=== PATIENT | male | born 1955 | race Caucasian/White ===

== ENCOUNTER 2018-02-04 15:18 | Emergency (ER) | payer OTHER ==
[2018-02-04 16:02] VITALS: BP 150/94
--- NOTE | 2018-02-04 16:14 | UC ---
Respiratory Complaint HPI - HPI Summary HPI Summary: 62 y/o male presents to the urgent care c/o body aches, dry cough, sore throat, low grade fever for the past 2 days. Pt reports his was had similar symptoms for the past 12 days and was recently Dx w/ bronchitis. Pain w/ swallowing is 3/10, but his uvula is very red. His cough didn't allow him to sleep last night. He has PMHX of asthma. He has not been wheezing, but wanted to use it last night for his cough and it was . He request a refill. He has taking Ibuprofen PO to alleviate symptoms. Pt denies SOB, chest pain, wheezing, abdominal pain, N/V/D. - History of Current Complaint Chief Complaint: UCRespiratory Stated Complaint: SORE THROAT COUGH Time Seen by Provider: 02/04/18 16:10 Hx Obtained From: Patient Onset/Duration: Gradual Onset, Lasting Days - 2 days, Still Present, Worse Since - last night Timing: Constant Severity Initially: Mild Severity Currently: Mild Pain Intensity: 3 Pain Scale Used: 0-10 Numeric Character: Cough: Nonproductive Aggravating Factors: Recumbent Position Alleviating Factors: OTC Meds Associated Signs And Symptoms: Positive: Fever - low grade. Negative: Wheezing - Risk Factors Pulmonary Embolism Risk Factors: Negative Cardiac Risk Factors: Negative Pseudomonas Risk Factors: Negative Tuberculosis Risk Factors: Negative - Allergies/Home Medications Allergies/Adverse Reactions: Allergies Allergy/AdvReac Type Severity Reaction Status Date / Time No Known Allergies Allergy Verified 02/04/18 16:07 Home Medications: Home Medications Multivitamin [Multivitamins] 1 cap PO DAILY 02/04/18 [History Confirmed 02/04/18 ] Vit D3-Vit K/Berberine/Hops [Ostera Tablet] 1 tab PO DAILY 02/04/18 [History Confirmed 02/04/18] PMH/Surg Hx/FS Hx/Imm Hx Previously Healthy: Yes Cardiovascular History: Hypertension Respiratory History: Asthma - Surgical History Surgical History: Yes Surgery Procedure, Year, and Place: LEFT LEG SURGERY - Family History Known Family History: Positive: Cardiac Disease, Hypertension - Social History Occupation: Employed Full-time Lives: With Family Alcohol Use: Occasionally Substance Use Type: None Smoking Status (MU): Former Smoker Review of Systems Constitutional: Fever - low grade at home Skin: Negative Eyes: Negative ENT: Sore Throat, Other - red uvula Respiratory: Cough - dry Cardiovascular: Negative Gastrointestinal: Negative Genitourinary: Negative Motor: Negative Neurovascular: Negative Musculoskeletal: Negative Neurological: Negative Psychological: Negative Is Patient Immunocompromised?: No All Other Systems Reviewed And Are Negative: Yes Physical Exam - Summary Physical Exam Summary: VITAL SIGNS: Reviewed. GENERAL: Patient is a well developed and nourished male who is sitting comfortable in the examining table. Patient is not in any acute respiratory distress. HEAD AND FACE: No signs of trauma. No ecchymosis, hematomas or skull depressions. No sinus tenderness. EYES: PERRLA, EOMI x 2, No injected conjunctiva, no nystagmus. No photophobia. EARS: Hearing grossly intact. Ear canals and tympanic membranes are within normal limits. MOUTH: Positive pharynx with erythema, no exudates, mild palatal petechiae. no B /L tonsillar enlargement . Uvula swollen and enlarged w/ erythema some papules. NECK: Supple, trachea is midline, Positive anterior cervical lymphadenopathy, no JVD, no carotid bruit, no c-spine tenderness, neck with full ROM. No meningeal signs, no Kernig's or brudzinskis signs. CHEST: Symmetric, no tenderness at palpation LUNGS: Clear to auscultation bilaterally. No wheezing or crackles. CVS: Regular rate and rhythm, S1 and S2 present, no murmurs or gallops appreciated. ABDOMEN: Soft, non-tender. No signs of distention. No rebound no guarding, and no masses palpated. Bowel sounds are normal. EXTREMITIES: FROM in all major joints, no edema, no cyanosis or clubbing. NEURO: Alert and oriented x 3. No acute neurological deficits. Speech is normal and follows commands. SKIN: Dry and warm Triage Information Reviewed: Yes Vital Signs: Initial Vital Signs Temp 97.6 F 02/04/18 15:57 Pulse 97 02/04/18 15:57 Resp 16 02/04/18 15:57 BP 150/94 02/04/18 15:57 Pulse Ox 100 02/04/18 15:57 Diagnostic Evaluation - Laboratory O2 Sat by Pulse Oximetry: 100 Respiratory Course/Dx - Course Course Of Treatment: 62 y/o male presents to the urgent care c/o body aches, dry cough, sore throat, low grade fever for the past 2 days. Pt reports his was had similar symptoms for the past 12 days and was recently Dx w/ bronchitis. Pain w/ swallowing is 3/10, but his uvula is very red. His cough didn't allow him to sleep last night. He has PMHX of asthma. He has not been wheezing, but wanted to use it last night for his cough and it was . He request a refill. He has taking Ibuprofen PO to alleviate symptoms. Pt denies SOB, chest pain, wheezing, abdominal pain, N/V/D. Hx obtained. Pt w/ uvulitis and pharyngitis on examination. Pt Rx Augmentin PO and advised to continue w/ Ibuprofen PO for pain and swelling. Also given refill for albuterol inhaler and Rx Tessalon tabs PO to alleviate cough.PT Advised on hand washing to avoid spreading. Also advised to rest, eat well and avoid strenuous exercise. If symptoms do not improve or worsen advised to return to the urgent care or f/u with PCP for further evaluation and treatment. Pt's BP is elevated today advised to decrease salt in diet, monitor BP and f/u with PCP for further management. PT understood and agreed w/ plan of care. - Differential Dx/Diagnosis Differential Diagnosis/HQI/PQRI: Asthma, Bronchitis, Influenza, Sinusitis, Other - pharyngitis, uvulitis Provider Diagnoses: 1- Pharyngitis. 2-Uvulitis. 3-Cough. 4-Uncontrolled HTN Discharge - Sign-Out/Discharge Documenting (check all that apply): Discharge/Admit/Transfer - D/C home - Discharge Plan Condition: Stable Disposition: HOME Prescriptions: Albuterol HFA INHALER* [Ventolin HFA Inhaler*] 1 - 2 puff INH Q6H PRN #1 mdi PRN Reason: Cough Amoxicillin/Clavulanate TAB* [Augmentin TAB 875*] 875 mg PO BID #20 tab Benzonatate CAP* [Tessalon 100 MG CAP*] 100 mg PO TID #21 cap Patient Education Materials: Pharyngitis (ED), Uvulitis (ED), Low-Sodium Diet ( ED) Referrals: Marcelina Rodriguez MD [Primary Care Provider] - 3 Days Additional Instructions: 1- Please take the full course of the antibiotic to avoid resistance. 2-Please continue taking ibuprofen PO q6-8hrs prn as instructed after meals to alleviate pain and swelling. Increase fluid intake, eat well, rest and avoid strenuous exercise 3-If symptoms do not improve or worsen please return to the urgent care or f/u with your PCP for further evaluation and treatment. 4-Your BP is elevated today. please decrease salt in your diet, monitor BP and if it continues to be elevated please f/u with your PCP for further management - Billing Disposition and Condition Condition: STABLE Disposition: HOME
== END 2018-02-04 16:45 | disposition home or self-care (01) ==
LOC: UCEAST 15:18
DX: J02.9 Acute pharyngitis, unspecified (principal); K12.2 Cellulitis and abscess of mouth; R05 Cough; I10 Essential (primary) hypertension; J45.909 Unspecified asthma, uncomplicated; Z87.891 Personal history of nicotine dependence
CPT/HCPCS: 99212; G0463

== ENCOUNTER 2023-08-04 14:44 | Observation (INO) ==
[2023-08-04 15:13] LABS: ABS Basophils 0.1 10^3/uL (0.0-0.1); ABS Lymphocytes 3.3 10^3/uL (1.0-4.8); ABS Monocytes 0.8 10^3/uL (0.0-1.1); ABS Neutrophils 4.2 10^3/uL (1.5-7.6); ABS Nucleated RBC 0.01 10^3/ul; Eosinophil % 0.5 %; Hematocrit 45.1 % (38-53); Hemoglobin 15.9 g/dL (13.2-16.3); Lymphocyte % 39.1 %; Mean Corpuscular Hemoglobin 30.4 pg (27-33); Mean Corpuscular Hgb Conc 35.3 g/dL (31-36); Mean Corpuscular Volume 86.2 fL (80-97); Mean Platelet Volume 8.5 fL (7.5-11.2); Nucleated Red Blood Cells % 0.1 %/100WBC (0.0-0.8); Platelet Count 229 10^3/uL (150-450); Red Blood Count 5.23 10^6/uL (4.06-5.63); Red Cell Distribution Width 13.8 % (12-17); White Blood Count 8.3 10^3/uL (3.6-10.2)
[2023-08-04 15:18] LABS: INR 1.17 (0.83-1.13)
[2023-08-04 15:32] LABS: Albumin 4.2 g/dL (3.2-5.2); Albumin/Globulin Ratio 1.8 (1-3); Creatinine, Serum 1.09 mg/dL (0.67-1.17); Globulin 2.4 g/dL (2-4); Potassium 3.8 mmol/L (3.5-5.0); Total Bilirubin 1.4 mg/dL (0.2-1.0); Total Protein 6.6 g/dL (6.4-8.9); eGFR CKD-EPI 74.4 (>60)
[2023-08-04] MEDS: Metoprolol Tartrate 5 mg VIAL 5 ml VIAL (1 mg/ml) IV PRN ×2 (16:26→16:56)
[2023-08-04 16:41] LABS: High Sensitivity Troponin 1 Hr 13 pg/mL (<20)
[2023-08-04] MEDS ORDERED: Albuterol HFA INHALER 8 gm MDI INH PRN (21:07)
[2023-08-05] MEDS ORDERED: Metoprolol Tartrate 5 mg VIAL 5 ml VIAL (1 mg/ml) IV PRN (04:23)
[2023-08-05 06:05] LABS: Calcium 8.8 mg/dL (8.6-10.3); Creatinine, Serum 1.07 mg/dL (0.67-1.17); Potassium 4.1 mmol/L (3.5-5.0); eGFR CKD-EPI 76.1 (>60)
[2023-08-05] MEDS ORDERED: Digoxin IV 0.5 MG/2 ML AMP (0.25 MG/ML) IV SLOW PU ONE ×2 (13:16→20:00)
[2023-08-06 06:56] LABS: ABS Basophils 0.1 10^3/uL (0.0-0.1); ABS Eosinophils 0.1 10^3/uL (0.0-0.5); ABS Monocytes 0.9 10^3/uL (0.0-1.1); ABS Neutrophils 5.8 10^3/uL (1.5-7.6); ABS Nucleated RBC 0.01 10^3/ul; Eosinophil % 0.6 %; Hematocrit 44.8 % (38-53); Hemoglobin 15.5 g/dL (13.2-16.3); Lymphocyte % 30.3 %; Mean Corpuscular Hemoglobin 30.1 pg (27-33); Mean Corpuscular Hgb Conc 34.7 g/dL (31-36); Mean Corpuscular Volume 86.9 fL (80-97); Mean Platelet Volume 8.3 fL (7.5-11.2); Nucleated Red Blood Cells % 0.1 %/100WBC (0.0-0.8); Platelet Count 208 10^3/uL (150-450); Red Blood Count 5.15 10^6/uL (4.06-5.63); White Blood Count 9.8 10^3/uL (3.6-10.2)
[2023-08-06 07:19] LABS: Calcium 8.6 mg/dL (8.6-10.3); Creatinine, Serum 1.1 mg/dL (0.67-1.17); Magnesium 1.9 mg/dL (1.9-2.7); Potassium 3.9 mmol/L (3.5-5.0); eGFR CKD-EPI 73.6 (>60)
[2023-08-06] MEDS ORDERED: Digoxin IV 0.5 MG/2 ML AMP (0.25 MG/ML) IV SLOW PU ONE (11:28)
[2023-08-06] MEDS ORDERED: Furosemide 20 mg/2 ml IV VIAL IV ONE (11:29)
[2023-08-06] MEDS ORDERED: Potassium Chlor 20 meq TAB.ER PO ONE (11:30)
[2023-08-07 06:39] LABS: ABS Basophils 0.1 10^3/uL (0.0-0.1); ABS Eosinophils 0.1 10^3/uL (0.0-0.5); ABS Lymphocytes 3.2 10^3/uL (1.0-4.8); ABS Neutrophils 5.1 10^3/uL (1.5-7.6); ABS Nucleated RBC 0.01 10^3/ul; Eosinophil % 0.9 %; Hematocrit 45.6 % (38-53); Hemoglobin 15.9 g/dL (13.2-16.3); Lymphocyte % 33.5 %; Mean Corpuscular Hgb Conc 34.9 g/dL (31-36); Mean Corpuscular Volume 86.1 fL (80-97); Mean Platelet Volume 8.6 fL (7.5-11.2); Nucleated Red Blood Cells % 0.1 %/100WBC (0.0-0.8); Platelet Count 208 10^3/uL (150-450); Red Blood Count 5.29 10^6/uL (4.06-5.63); Red Cell Distribution Width 13.4 % (12-17); White Blood Count 9.4 10^3/uL (3.6-10.2)
[2023-08-07 09:05] LABS: Creatinine, Serum 1.11 mg/dL (0.67-1.17); Phosphorus 3.6 mg/dL (2.5-5.0); eGFR CKD-EPI 72.8 (>60)
[2023-08-07 14:49] VITALS: BP 130/95
== END 2023-08-07 15:00 | disposition home or self-care (01) ==
LOC: ED 14:44 → EDHOLD 14:44 → SUATTDRO 19:19 → MEDTELE 22:46
PROVIDERS: ADMIT Internal Medicine; ATTEND Internal Medicine